=== PATIENT | male | born 1935 | race Caucasian/White ===

== ENCOUNTER 2017-07-30 14:27 | Emergency (ER) | payer MEDICARE ==
[2017-07-30 14:36] LABS: Glucose,Whole Blood 235 mg/dL (75-99)
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
[2017-07-30] MEDS ORDERED: SUCCINYLCHOLINE CHLORIDE VIAL 200 MG/10 ML VIAL IV ONE (15:26)
[2017-07-30] MEDS ORDERED: MIDAZOLAM (PF) 1 MG/ML 5 ML VIAL ONE (15:26)
== END 2017-07-30 19:00 | disposition expired ==
LOC: EC 14:27
DX: S21.102A Unspecified open wound of left front wall of thorax without penetration into thoracic cavity, initial encounter (principal); R40.2142 Coma scale, eyes open, spontaneous, at arrival to emergency department; R40.2313 Coma scale, best motor response, none, at hospital admission; R40.2212 Coma scale, best verbal response, none, at arrival to emergency department; I48.91 Unspecified atrial fibrillation; J44.9 Chronic obstructive pulmonary disease, unspecified; E78.5 Hyperlipidemia, unspecified; I10 Essential (primary) hypertension; Z85.46 Personal history of malignant neoplasm of prostate; Z95.1 Presence of aortocoronary bypass graft; Z87.891 Personal history of nicotine dependence; Z79.01 Long term (current) use of anticoagulants; Z79.82 Long term (current) use of aspirin; Z79.899 Other long term (current) drug therapy; Y92.818 Other transport vehicle as the place of occurrence of the external cause
CPT/HCPCS: 99291; 36556; 32551; 36415; 86900; 86901; 86920; 71045; C1729; P9016; 86850